=== PATIENT | female | born 1975 | race Caucasian/White ===

== ENCOUNTER 2017-02-13 20:51 | Emergency (ER) | payer OTHER ==
[2017-02-13 21:02] VITALS: BP 138/91; TEMP 98; BMI 29.9
--- NOTE | 2017-02-13 21:17 | PDOC ---
History of Present Illness <Romi Escobar - Last Filed: 02/13/17 21:20> - General History Source: Patient Exam Limitations: No Limitations - History of Present Illness Initial Comments: 02/13/17 21:15 A portion of this note was documented by scribe services under my direction. I have reviewed the details of the note, within reason, and agree with the documentation. The case summary and management plan written by me. Assessment and plan: This is a 41-year-old female who has history of anxiety and palpitations in the past. Patient came in complaining of some upper respiratory tract symptoms and the palpitations. Patient had a heart rate initially of 113 in the emergency room but by the time she had a cardiogram done it was down to 106 the time of my evaluation it was done around 100. Patient otherwise has a history of Hypertension and obesity but is otherwise healthy. Patient cardiogram showed normal sinus rhythm at a rate of [address]-T wave changes otherwise normal EKG Patient given some Xanax for anxiety as she said she does feel anxious. Heart rate is 98 at discharge. Patient discharged home will follow-up with her primary care doctor 02/13/17 21:27 <Tristan Calzada I - Last Filed: 02/13/17 21:28> - General Chief Complaint: Tachycardia Stated Complaint: HEART RACING Time Seen by Provider: 02/13/17 20:57 Past History <Romi Escobar - Last Filed: 02/13/17 21:20> - Past Medical History HTN: Yes Thyroid Disease: Yes Other medical history: ANXIETY - Immunization History Immunization Up to Date: Yes - Psycho/Social/Smoking Cessation Hx Anxiety: No Suicidal Ideation: No Smoking Status: No Smoking History: Never smoked Have you smoked in the past 12 months: No Number of Cigarettes Smoked Daily: 0 Information on smoking cessation initiated: No Hx Alcohol Use: No Drug/Substance Use Hx: No Substance Use Type: None <Tristan Calzada I - Last Filed: 02/13/17 21:28> - Past Medical History Allergies/Adverse Reactions: Allergies Allergy/AdvReac Type Severity Reaction Status Date / Time Penicillins Allergy Mild Hives Verified 05/25/16 18:52 Home Medications: Ambulatory Orders Levothyroxine Sodium [Synthroid] 175 mcg PO DAILY 11/25/11 Nebivolol [Bystolic -] 5 mg PO DAILY 03/22/16 Escitalopram Oxalate [Lexapro -] 20 mg PO DAILY 02/13/17 *Physical Exam - Vital Signs Last Vital Signs Temp Pulse Resp BP Pulse Ox 98 F 113 H 16 138/91 98 02/13/17 20:52 02/13/17 20:52 02/13/17 20:52 02/13/17 20:52 02/13/17 20:52 <Romi Escobar - Last Filed: 02/13/17 21:20> - Vital Signs Last Vital Signs Temp Pulse Resp BP Pulse Ox 98 F 113 H 16 138/91 98 02/13/17 20:52 02/13/17 20:52 02/13/17 20:52 02/13/17 20:52 02/13/17 20:52 <Tristan Calzada I - Last Filed: 02/13/17 21:28> Heart Score/ECG Review #1 ECG reviewed & interpreted by me at: 21:03 (Vent Rate: 106 bpm. Sinus tachycardia. ) <Romi Escobar - Last Filed: 02/13/17 21:20> *DC/Admit/Observation/Transfer - Attestations Scribe Attestion: 02/13/17 21:20 Documentation prepared by Romi Escobar, acting as medical dosimetrist for Tristan Calzada MD. <Romi Escobar - Last Filed: 02/13/17 21:20> - Discharge Dispostion Admit: No <Tristan Calzada I - Last Filed: 02/13/17 21:28> Diagnosis at time of Disposition: Heart palpitations, Anxiety, Viral upper respiratory infection - Discharge Dispostion Disposition: HOME Condition at time of disposition: Stable - Patient Instructions Additional Instructions: You can continue to take your medications as prescribed. Return to the emergency department immediately with ANY new, persistent or worsening symptoms. Continue any medications as previously prescribed by your physician. You should follow up with your primary doctor as soon as possible regarding today's emergency department visit. . Please make sure your doctor reviews the results of your emergency evaluation. Thank you for coming to the Emergency Department today for your care. It was a pleasure to see you today. Please note that your evaluation is INCOMPLETE until you follow-up with your doctor.
[2017-02-13] MEDS ORDERED: ALPRAZolam 0.25 MG TABLET PO STA (21:18)
[2017-02-13] MEDS ORDERED: ALPRAZolam 0.25 MG TABLET ONE (21:24)
[2017-02-13 21:28] VITALS: PULSE 98
--- NOTE | 2017-02-13 21:29 | PDOC ---
*Physical Exam - Vital Signs Last Vital Signs Temp Pulse Resp BP Pulse Ox 98 F 98 H 16 138/91 98 02/13/17 20:52 02/13/17 21:28 02/13/17 20:52 02/13/17 20:52 02/13/17 20:52 <Tristan Calzada I - Last Filed: 02/13/17 21:29> - Vital Signs Last Vital Signs Temp Pulse Resp BP Pulse Ox 98 F 98 H 16 138/91 98 02/13/17 20:52 02/13/17 21:28 02/13/17 20:52 02/13/17 20:52 02/13/17 20:52 <Romi Escobar - Last Filed: 02/13/17 21:30> ED Treatment Course - Medications Given in the ED: ED Medications Discontinued Medications Generic Name Dose Route Start Last Admin Trade Name Freq PRN Reason Stop Dose Admin Alprazolam 0.5 mg 02/13/17 21:18 02/13/17 21:25 Xanax - PO 02/13/17 21:19 0.5 mg ONCE STA Administration <Tristan Calzada I - Last Filed: 02/13/17 21:29> - Medications Given in the ED: ED Medications Discontinued Medications Generic Name Dose Route Start Last Admin Trade Name Freq PRN Reason Stop Dose Admin Alprazolam 0.5 mg 02/13/17 21:18 02/13/17 21:25 Xanax - PO 02/13/17 21:19 0.5 mg ONCE STA Administration <Romi Escobar - Last Filed: 02/13/17 21:30> Progress Note - Progress Note Progress Note: []This chart is to document the scribes portion of the chart Which is the history of present illness the review of systems and the exam. The other chart was closed prior to scribes documentation. <Tristan Calzada I - Last Filed: 02/13/17 21:29> - Progress Note Progress Note: The patient is a 41 year old female, with a significant past medical history of hypertension, hypothyroidism and anxiety, who presents to the emergency department with palpitations since earlier this evening. The patient states that she has experienced similar episodes of palpitations in the past. The patient additionally reports that she believes she is coming down with a cold, she reports URI symptoms including nasal congestion and a cough so she decided to visit the ED for further evaluation. Currently in the ED, the patient reports feeling anxious. The patient denies chest pain or shortness of breath. The patient denies fever, chills, nausea, vomiting or diarrhea. PAST MEDICAL HISTORY: See HPI. PAST SURGICAL HISTORY: No significant history. FAMILY HISTORY: No pertinent history. SOCIAL HISTORY: Patient lives with family and is employed. MEDICATIONS: Reviewed. ALLERGIES: As per nursing notes. Adult ROS: General: No fevers or chills, no weakness, no weight loss. HEENT: +Nasal congestion. No change in vision. No sore throat. No ear pain. Cardiovascular: +Palpitations. No chest pain or shortness of breath. Respiratory: +Cough. No wheezing. Gastrointestinal: No nausea, vomiting, diarrhea or constipation, no rectal bleeding. Genitourinary: No dysuria, hematuria, or frequency. Musculoskeletal: No joint or muscle pain or swelling. Neurologic: No headache, vertigo, dizziness or loss of consciousness. Psychiatric: +Anxiety. No depression. Skin: No rashes or easy bruising. Endocrine: No increased thirst or abnormal weight change. Allergic: No skin or latex allergy. All other systems reviewed and normal. Adult Physical Exam: General: Well-nourished well-developed individual, no acute distress. HEENT: Nasal congestion. Throat: Normal, tonsils normal, no erythema or exudate. Neck: Supple, no meningeal signs, no lymphadenopathy. Eyes: Pupils equal reactive and round, extraocular motion intact. Chest: Nontender to palpation. Cardiac: Mild tachycardia. S1-S2 normal, no murmurs rubs or gallops. Respiratory: Lungs clear to auscultation bilateral. Abdomen: Soft, nondistended, normal bowel sounds, nontender to palpation diffusely. Extremities: Warm, dry, no cyanosis, clubbing, or edema. Skin: No rashes. Neuro: Alert and oriented x3, nonfocal exam, grossly intact, normal gait. Psych: Normal mood and affect. <Romi Escobar - Last Filed: 02/13/17 21:30> *DC/Admit/Observation/Transfer <Tristan Calzada I - Last Filed: 02/13/17 21:29> - Attestations Scribe Attestion: 02/13/17 21:30 Documentation prepared by Romi Escobar, acting as medical appointment scheduler for Tristan Calzada MD. <Romi Escobar - Last Filed: 02/13/17 21:30> Diagnosis at time of Disposition: Heart palpitations, Anxiety, Viral upper respiratory infection - Discharge Dispostion Disposition: HOME Condition at time of disposition: Stable - Patient Instructions Additional Instructions: You can continue to take your medications as prescribed. Return to the emergency department immediately with ANY new, persistent or worsening symptoms. Continue any medications as previously prescribed by your physician. You should follow up with your primary doctor as soon as possible regarding today's emergency department visit. . Please make sure your doctor reviews the results of your emergency evaluation. Thank you for coming to the Emergency Department today for your care. It was a pleasure to see you today. Please note that your evaluation is INCOMPLETE until you follow-up with your doctor.
--- NOTE | 2017-02-14 13:16 | EKG ---
Test Reason : Blood Pressure : / mmHG Vent. Rate : 106 BPM Atrial Rate : 106 BPM P-R Int : 138 ms QRS Dur : 082 ms QT Int : 356 ms P-R-T Axes : 041 047 002 degrees QTc Int : 472 ms SINUS TACHYCARDIA OTHERWISE NORMAL ECG NO PREVIOUS ECGS AVAILABLE Confirmed by ASHLEY GONZALES, DAMIEN ([id number]) on 02/14/2017 1:16:05 PM Referred By: SANTA Confirmed By:DAMIEN RAMIREZ MD
== END 2017-02-13 21:28 | disposition home or self-care (01) ==
LOC: FER 20:51
DX: J06.9 Acute upper respiratory infection, unspecified (principal); B97.89 Other viral agents as the cause of diseases classified elsewhere; R00.2 Palpitations; F41.9 Anxiety disorder, unspecified; I10 Essential (primary) hypertension; E07.9 Disorder of thyroid, unspecified
CPT/HCPCS: 93005; 93010; 99281-25

== ENCOUNTER 2017-07-24 19:00 | Emergency (ER) | payer OTHER ==
[2017-07-24 19:41] VITALS: TEMP 98.6; BMI 51.2
[2017-07-24] MEDS ORDERED: FAMOTIDINE 20 MG/50 ML IVPB 50 ML IVPB ONE (20:02)
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
[2017-07-24 20:54] LABS: EOSINOPHIL 2.4 % (0-4.5); MCH 30.4 pg (25.7-33.7); MCHC 34.5 g/dl (32.0-36.0); MEAN PLT VOLUME 7.2 fl (7.5-11.1); NEUTROPHILS 50.1 % (42.8-82.8); PLATELET COUNT 332 K/MM3 (134-434); RDW 11.2 % (11.6-15.6); WHITE BLOOD COUNT 7.3 K/mm3 (4.0-10.8)
[2017-07-24 21:19] LABS: ALBUMIN 4.4 g/dl (3.5-5.0); ALK PHOS 46 U/L (32-92); ANION GAP 10 (8-16); BILIRUBIN,TOTAL 0.8 mg/dl (0.2-1.0); CALCIUM 9.3 mg/dl (8.4-10.2); CO2 23 mmol/L (22-28); CPK 178 IU/L (26-192); CREATININE 0.7 mg/dl (0.6-1.3); GLUCOSE,RANDOM 90 mg/dl (74-106); SGOT/AST 23 U/L (10-42); SGPT/ALT 24 U/L (10-40); TOT PROT 7.6 g/dl (6.4-8.3)
[2017-07-24 21:29] LABS: TROPONIN I (DFP) < 0.03 ng/ml (0.03-0.50)
[2017-07-24 21:42] VITALS: BP 113/75; PULSE 82
--- NOTE | 2017-07-25 20:37 | EKG ---
Test Reason : Blood Pressure : / mmHG Vent. Rate : 092 BPM Atrial Rate : 092 BPM P-R Int : 144 ms QRS Dur : 082 ms QT Int : 374 ms P-R-T Axes : 075 014 006 degrees QTc Int : 462 ms NORMAL SINUS RHYTHM MODERATE VOLTAGE CRITERIA FOR LVH, MAY BE NORMAL VARIANT BORDERLINE ECG WHEN COMPARED WITH ECG OF 13-FEB-2017 21:03, NO SIGNIFICANT CHANGE WAS FOUND REPEAT EKG IF CLINICALLY INDICATED BASELINE ARTIFACT Confirmed by ROBERT WEATHERS MD ([id number]) on 07/25/2017 8:37:24 PM Referred By: FELIX Confirmed By:ROBERT WEATHERS MD
== END 2017-07-24 21:59 | disposition home or self-care (01) ==
LOC: FER 19:00
DX: R07.89 Other chest pain (principal); I10 Essential (primary) hypertension; F41.9 Anxiety disorder, unspecified; E28.2 Polycystic ovarian syndrome
CPT/HCPCS: 36415; 80053; 82553; 84484; 85025; 93005; 99283-25

== ENCOUNTER 2019-12-09 11:15 | Emergency (ER) | payer OTHER ==
--- NOTE | 2019-12-09 11:24 | PDOC ---
History of Present Illness - General Chief Complaint: Toothache Stated Complaint: TOOTHACHE Time Seen by Provider: 12/09/19 11:17 History Source: Patient - History of Present Illness Initial Comments: 12/09/19 11:41 Ms. Peraza is a 44 y/o woman w/hx HTN, hypothyroidism, dental filling p/w three days of worsening dental pain. She reports that the pain began monday but became more severe starting monday. She reports the pain as throbbing in the R molar, 8/10 at rest and 10/10 with hot or cold liquids, chewing. She reports taking acetaminophen and ibuprofen for the pain for the last few days, which alleviated the pain initially but has been less effective the last two days. She denies any shortness of breath, chest pain, facial numbness or swelling, difficulty speaking, difficulty swallowing, fevers, chills, nausea, vomiting, or prior maxillofacial surgery. She has an appointment with her dentist on Monday. Past History - Past Medical History Allergies/Adverse Reactions: Allergies Allergy/AdvReac Type Severity Reaction Status Date / Time Penicillins Allergy Mild Hives Verified 12/09/19 11:21 Home Medications: Ambulatory Orders Acetaminophen [Tylenol] 650 mg PO TID PRN 12/09/19 Clindamycin [Cleocin -] 150 mg PO Q6H 5 Days #20 capsule 12/09/19 Ibuprofen 800 mg PO Q8H PRN #15 tablet 12/09/19 Ibuprofen [Advil -] 200 mg PO TID PRN 12/09/19 Levothyroxine [Synthroid -] 125 mcg PO DAILY 12/09/19 Disorders: Yes (PCOS) HTN: Yes Psychiatric Problems: Yes (ANXIETY/PANIC ATTACKS) Thyroid Disease: Yes - Immunization History Immunization Up to Date: Yes - Psycho Social/Smoking Cessation Hx Smoking Status: No Smoking History: Never smoked Have you smoked in the past 12 months: No Number of Cigarettes Smoked Daily: 0 Hx Alcohol Use: No Drug/Substance Use Hx: No Substance Use Type: None Review of Systems - Review of Systems Able to Perform ROS?: Yes Comments:: 12/09/19 11:54 ROS: GENERAL/CONSTITUTIONAL: No fever or chills. No weakness. HEAD, EYES, EARS, NOSE AND THROAT: R molar pain. No change in vision. No ear pain or discharge. No sore throat. CARDIOVASCULAR: No chest pain or shortness of breath RESPIRATORY: No cough, wheezing, or hemoptysis. GASTROINTESTINAL: No nausea, vomiting, diarrhea or constipation. GENITOURINARY: No dysuria, frequency, or change in urination. MUSCULOSKELETAL: No joint or muscle swelling or pain. No neck or back pain. SKIN: No rash NEUROLOGIC: No headache, vertigo, loss of consciousness, or change in strength/ sensation. ENDOCRINE: No increased thirst. No abnormal weight change HEMATOLOGIC/LYMPHATIC: No anemia, easy bleeding, or history of blood clots. ALLERGIC/IMMUNOLOGIC: No hives or skin allergy. *Physical Exam - Physical Exam 12/09/19 11:55 PE: GENERAL: Awake, alert, and fully oriented, in no acute distress HEAD: No signs of trauma, normocephalic, atraumatic. No facial swelling noted. Tenderness on palpation of R 31st tooth, no no surrounding erythema, lesions, or abscess noted. No tenderness to external palpation of mandible. EYES: PERRLA, EOMI, sclera anicteric, conjunctiva clear ENT: Auricles normal inspection, hearing grossly normal, nares patent, oropharynx clear without exudates. Moist mucosa NECK: Normal ROM, supple, no lymphadenopathy, JVD, or masses LUNGS: No distress, speaks full sentences, clear to auscultation bilaterally HEART: Regular rate and rhythm, normal S1 and S2, no murmurs, rubs or gallops, peripheral pulses normal and equal bilaterally. ABDOMEN: Soft, nontender, normoactive bowel sounds. No guarding, no rebound. No masses EXTREMITIES : Normal inspection, Normal range of motion, no edema. No clubbing or cyanosis NEUROLOGICAL: Cranial nerves II through XII grossly intact. Normal speech, normal gait, no focal sensorimotor deficits SKIN: Warm, Dry, normal turgor, no rashes or lesions noted Medical Decision Making - Medical Decision Making 12/09/19 11:47 44F w/hx HTN, hypothyroidism, tooth filling p/w tooth pain for 3 days, with no dysphagia, fevers, chills, or difficulty breathing, likely representing pulpitis. Ludwigs angina unlikely given lack of edema, dysphagia, necrotizing ulcerative gingivitis unlikely given benign exam. Plan: Clindamycin 150 mg 4x daily for 5 days Ibuprofen 800 mg TID prn pain 5 days Dispo: Discharge, follow up with dentistry Discharge - Discharge Information Problems reviewed: Yes Clinical Impression/Diagnosis: Pain, dental Condition: Good Disposition: HOME - Admission No - Additional Discharge Information Prescriptions: Clindamycin [Cleocin -] 150 mg PO Q6H 5 Days #20 capsule Ibuprofen 800 mg PO Q8H PRN #15 tablet PRN Reason: Pain - Follow up/Referral Referrals: Arpan Michael MD [Primary Care Provider] - - Patient Discharge Instructions Patient Printed Discharge Instructions: DI for Dental Pain Additional Instructions: You were seen in the ER for dental pain. Your exam was normal. Please be sure to keep your appointment with your dentist. We are prescribing you an antibiotic , clindamycin. Please take it as directed, every 6 hours for 5 days. We are also prescribing a prescription strength ibuprofen, please take it as needed for pain, no more than one pill every 8 hours. Please return to the ER if you develop high fevers, difficulty breathing, chest pain, weakness. - Post Discharge Activity
[2019-12-09 11:30] VITALS: PULSE 100; TEMP 98.1; BMI 48.4
[2019-12-09 11:57] VITALS: BP 158/100
--- NOTE | 2019-12-09 12:01 | PDOC ---
Attending Attestation - Resident Resident Name: MariluLuis wild - ED Attending Attestation I have performed the following: I have examined & evaluated the patient, The case was reviewed & discussed with the resident, I agree w/resident's findings & plan, Exceptions are as noted - HPI HPI: 12/09/19 11:57 Toothache right lower molar since Monday. Taking ibuprofen. Called her dentist today, who could not see her, and was instructed to go to the emergency room. No fever/chills or other constitutional signs. - Physicial Exam PE: 12/09/19 11:58 Physical exam: Afebrile. Vital signs normal except for borderline HBP, for which she is being treated There is no swelling, erythema, or warmth of the face. There is no swelling, erythema, or fluctuance visible or palpable in the oropharynx, although the last molar is mildly tender when palpated with a tongue blade. The gingiva appears healthy. No palpable cervical nodes - Medical Decision Making 12/09/19 12:00 Assessment: Probable dental abscess with pain, no sign of cellulitis or significant facial infection Plan: Antibiotics and analgesics. Follow-up with dentist when scheduled on Monday. It was made clear that antibiotics may help to control the infection temporarily, but that it will not resolve without treatment by dentist. Patient seems to understand and agree to timely follow-up. Discharged in no severe pain or other distress to follow-up as directed
== END 2019-12-09 11:57 | disposition home or self-care (01) ==
LOC: FER 11:15
DX: K08.89 Other specified disorders of teeth and supporting structures (principal); Z88.0 Allergy status to penicillin; E03.9 Hypothyroidism, unspecified; F41.0 Panic disorder [episodic paroxysmal anxiety]; E28.2 Polycystic ovarian syndrome; I10 Essential (primary) hypertension; E07.9 Disorder of thyroid, unspecified
CPT/HCPCS: 99283-25

== ENCOUNTER 2023-05-27 00:42 | Emergency (ER) | payer OTHER ==
[2023-05-27 00:54] VITALS: BMI 47.8
[2023-05-27 02:39] LABS: BASO % 0.5 % (0-2.0); EOS % 2.4 % (0-4.5); HEMATOCRIT 37.5 % (32.4-45.2); HEMOGLOBIN 12.8 GM/dL (10.7-15.3); LYMPH % 31.3 % (8-40); MCH 29.9 pg (25.7-33.7); MEAN CELL VOLUME 87.9 fl (80-96); MEAN PLT VOLUME 7.4 fl (7.5-11.1); MONO % 9.4 % (3.8-10.2); NEUT % 56.4 % (42.8-82.8); PLATELET COUNT 348 10^3/uL (134-434); RBC 4.27 M/mm3 (3.60-5.2); RDW 12.6 % (11.6-15.6); WHITE BLOOD COUNT 8.9 K/mm3 (4.0-10.0)
[2023-05-27 03:03] LABS: POTASSIUM 3.7 mmol/L (3.5-5.1)
[2023-05-27 03:05] LABS: CALCIUM 8.8 mg/dL (8.5-10.1)
[2023-05-27 03:06] LABS: ALBUMIN 3.8 g/dl (3.4-5.0); BLOOD UREA NITROGEN 11.9 mg/dL (7-18)
[2023-05-27 03:09] LABS: CREATININE 0.9 mg/dL (0.55-1.3)
[2023-05-27 03:11] LABS: BILIRUBIN,TOTAL 0.2 mg/dL (0.2-1); TOT PROT 7.6 g/dl (6.4-8.2)
[2023-05-27 04:57] VITALS: BP 129/71; PULSE 88; RESP 18; TEMP 98.4
== END 2023-05-27 07:05 | disposition home or self-care (01) ==
LOC: JER 00:42
DX: R41.9 Unspecified symptoms and signs involving cognitive functions and awareness (principal); R10.9 Unspecified abdominal pain
CPT/HCPCS: 36415; 71045-TC-FY; 80053; 83735; 84439; 84443; 84484; 85025; 85379; 93005; 93010; 99285-25

== ENCOUNTER 2024-08-07 10:43 | Emergency (ER) | payer OTHER ==
[2024-08-07 10:53] VITALS: BMI 50.3
[2024-08-07 15:16] VITALS: BP 179/93; PULSE 88; RESP 20; TEMP 98.1
== END 2024-08-07 15:19 | disposition home or self-care (01) ==
LOC: JER 10:43
DX: R20.0 Anesthesia of skin (principal); M51.16 Intervertebral disc disorders with radiculopathy, lumbar region; R20.2 Paresthesia of skin
CPT/HCPCS: 72131-TC; 84703; 99284-25